=== PATIENT | female | born 1995 | race American Indian/Alaskan Native ===

== ENCOUNTER 2016-10-19 23:34 | Emergency (ER) | payer OTHER ==
[2016-10-19 23:34] VITALS: BMI 28.5
== END 2016-10-20 02:05 | disposition left against medical advice (07) ==
LOC: ED 23:34
DX: Z02.89 Encounter for other administrative examinations (principal); R52 Pain, unspecified

== ENCOUNTER 2017-02-17 10:19 | Emergency (ER) | payer MEDICAID, OTHER ==
[2017-02-17 10:19] VITALS: BMI 28.5
[2017-02-17] MEDS ORDERED: Morphine 2 mg/ml ISec IVP STA (10:42)
--- NOTE | 2017-02-17 10:46 | ED PDOC ---
Arrival/HPI - General Chief Complaint: Dental Pain Time Seen by Provider: 02/17/17 10:42 Historian: Patient, EMS - History of Present Illness Narrative History of Present Illness (Text): 02/17/17 10:43 22 y/o female, nkda, c/o rt. lower molar pain with the swelling x 2 days with no fall or trauma. Pt. stated that she has the rt. lower molar pain x 2 days, aching pain, associated with the right facial swelling, no night sweat, no dizziness, no rash, no chest pain or shortness of breath, no difficulty turning the neck, no night sweat, no difficulty swallowing, no other medical or psychological complaints. Past Medical History - Provider Review Nursing Documentation Reviewed: Yes - Past History Past History: Non-Contributing - Infectious Disease Hx of Infectious Diseases: None - Tetanus Immunization Tetanus Immunization: Unknown - Reproductive Menopause: No - Past Medical History Past Medical History: No Previous - Cardiac Hx Cardiac Disorders: No Hx Hypertension: No - Pulmonary Hx Respiratory Disorders: No Hx Asthma: No Hx Tuberculosis: No - Neurological HX Cerebrovascular Accident: No Hx Seizures: No - Hematological/Oncological Hx Cancer: No - Musculoskeletal/Rheumatological Hx Falls: No - Gastrointestinal Hx Gastrointestinal Disorders: No - Genitourinary/Gynecological Hx Genitourinary Disorders: No Hx Reproductive Disorders: No - Psychiatric Hx Psychophysiologic Disorder: No Hx Emotional Abuse: No Hx Physical Abuse: No Hx Substance Use: Yes - Past Surgical History Past Surgical History: No Previous - Anesthesia Hx Anesthesia: No Hx Anesthesia Reactions: No Hx Malignant Hyperthermia: No - Suicidal Assessment Feels Threatened In Home Enviroment: No Family/Social History - Physician Review Nursing Documentation Reviewed: Yes Family/Social History: Unknown Family HX Smoking Status: Never Smoked Hx Alcohol Use: No Hx Substance Use: Yes Hx Substance Use Treatment: No Allergies/Home Meds Allergies/Adverse Reactions: Allergies No Known Allergies Allergy (Verified 02/17/17 10:32) Review of Systems - Review of Systems Constitutional: absent: Fatigue, Fevers Eyes: absent: Vision Changes ENT: Other (dental pain). absent: Hearing Changes Respiratory: absent: SOB, Cough Cardiovascular: absent: Chest Pain, Palpitations, Calf Pain Gastrointestinal: absent: Abdominal Pain, Nausea, Vomiting Skin: absent: Rash, Pruritis Neurological: absent: Headache, Dizziness, Focal Weakness Psychiatric: absent: Anxiety, Depression Physical Exam Vital Signs Reviewed: Yes Vital Signs Temp Pulse Resp BP Pulse Ox 02/17/17 11:08 71 18 141/83 97 02/17/17 10:29 98.9 F 74 19 141/83 98 Temperature: Afebrile Blood Pressure: Normal Pulse: Regular Respiratory Rate: Normal Appearance: Positive for: Well-Appearing, Non-Toxic Pain Distress: Severe Mental Status: Positive for: Alert and Oriented X 3 - Systems Exam Head: Present: Atraumatic, Normocephalic Pupils: Present: PERRL Extroacular Muscles: Present: EOMI Conjunctiva: Present: Normal Mouth: Present: Moist Mucous Membranes, Normal Lips, Normal Tounge. No: Drooling, Trismus, Normal Teeth (Rt. lower gum line and molar region swelling noted with mild gingivitis, there are multiple dental caries with the brokened teeth noted especially on the bilateral lower molars. ) Pharnyx: No: ERYTHEMA, EXUDATE, TONSILS ENLARGED, Uvular Deviation, Muffled/ Hoarse Voice, Strider Neck: Present: Normal Range of Motion Respiratory/Chest: Present: Clear to Auscultation, Good Air Exchange. No: Respiratory Distress, Accessory Muscle Use Cardiovascular: Present: Regular Rate and Rhythm, Normal S1, S2. No: Murmurs Abdomen: Present: Normal Bowel Sounds. No: Tenderness, Distention, Peritoneal Signs Back: Present: Normal Inspection Upper Extremity: Present: Normal Inspection. No: Cyanosis, Edema Lower Extremity: Present: Normal Inspection. No: Edema Neurological: Present: GCS=15, CN II-XII Intact, Speech Normal Skin: Present: Warm, Dry, Normal Color. No: Rashes Psychiatric: Present: Alert, Oriented x 3, Normal Insight, Normal Concentration Medical Decision Making ED Course and Treatment: 02/17/17 10:47 -clindamycin/toradol/morphine 2mg -there is no palpable fluctuant abscess and confirmed with the sonogram on the bed side. 02/17/17 11:54 -Pain decreased, patient feels better. -Discharge home with clindamycin, motrin, chlorhexidine oral rinse, viscous lidocaine, soft food diet, stay hydrated, follow up with your own pmd and dentist within 2 days, return to the ER for any new or worsening signs or symptoms. - Medication Orders Current Medication Orders: Discontinued Medications Clindamycin Phosphate (Cleocin) Confirm Administered Dose 600 mg .ROUTE .STK- MED ONE Stop: 02/17/17 10:50 Clindamycin Phosphate 900 mg/ (Sodium Chloride) 106 mls @ 106 mls/hr IVPB STAT STA PRN Reason: Protocol Stop: 02/17/17 11:41 Last Admin: 02/17/17 11:16 Dose: 106 mls/hr Ketorolac Tromethamine (Toradol) 30 mg IVP STAT STA Stop: 02/17/17 10:43 Last Admin: 02/17/17 11:18 Dose: 30 mg Lidocaine HCl (Lidocaine 2% Viscous) 15 ml MM STAT STA Stop: 02/17/17 10:49 Last Admin: 02/17/17 11:20 Dose: 15 ml Morphine Sulfate (Morphine) 2 mg IVP STAT STA Stop: 02/17/17 10:43 Last Admin: 02/17/17 11:17 Dose: 2 mg - PA / RESIDENTIAL SERVICE TECHNICIAN / Resident Statement / has reviewed & agrees with the documentation as recorded. Disposition/Present on Arrival - Present on Arrival Any Indicators Present on Arrival: No History of DVT/PE: No History of Uncontrolled Diabetes: No Urinary Catheter: No History of Decub. Ulcer: No History Surgical Site Infection Following: None - Disposition Have Diagnosis and Disposition been Completed?: Yes Diagnosis: Dental caries, Pain, dental, Gingivitis Disposition: HOME/ ROUTINE Disposition Time: 11:56 Patient Plan: Discharge Condition: IMPROVED Prescriptions: Chlorhexidine 0.12% [Peridex] 15 ml PO BID #1 bottle Clindamycin [Cleocin] 300 mg PO TID #30 cap Ibuprofen [Motrin Tab] 800 mg PO TID PRN #21 tab PRN Reason: Other Lidocaine 2% Viscous 15 ml MM TID PRN #1 bottle PRN Reason: Other Referrals: PCP,NO [Primary Care Provider] - Follow up with primary Saul Scott DMD [Non-Staff] - Follow up with primary [facility] [place]] - Follow up with primary Forms: [facility] (Green[place]ic), WORK NOTE
[2017-02-17] MEDS ORDERED: Clindamycin 150 mg/mL Inj ONE (10:49)
[2017-02-17 11:09] VITALS: RESP 18; O2SAT 97
[2017-02-17 12:25] VITALS: BP 138/74; PULSE 75
[2017-02-17 13:15] VITALS: TEMP 97.6
== END 2017-02-17 13:16 | disposition home or self-care (01) ==
LOC: ED 10:19
DX: K02.9 Dental caries, unspecified (principal); K08.89 Other specified disorders of teeth and supporting structures; K05.10 Chronic gingivitis, plaque induced
CPT/HCPCS: 96365; 96375; 99283; J1885; J2270

== ENCOUNTER 2017-05-02 22:49 | Emergency (ER) | payer MEDICAID ==
[2017-05-02 23:16] VITALS: BMI 33.7
[2017-05-02 23:20] VITALS: BP 117/82; PULSE 73; RESP 18; TEMP 98.4; O2SAT 97
[2017-05-03 00:27] LABS: PH,URINE 6.5 (4.7-8.0); URINE BILIRUBIN NEGATIVE (NEGATIVE); URINE BLOOD NEGATIVE (NEGATIVE); URINE GLUCOSE (UA) NEGATIVE (NEGATIVE); URINE KETONE NEGATIVE (NEGATIVE); URINE LEUKOCYTE ESTERASE TRACE Leu/uL (NEGATIVE); URINE PROTEIN NEGATIVE mg/dL (<30 mg/dL)
[2017-05-03 00:29] LABS: BASO # 0.02 K/mm3 (0.0-2.0); BASO % 0.3 % (0.0-3.0); EOS # 0.3 (0.0-0.7); EOS % 4.2 % (1.5-5.0); GRAN # 2.94 (1.4-6.5); GRAN % 49.2 % (50.0-68.0); HEMATOCRIT 34.5 % (36.0-48.0); LYMPH # 2.3 (1.2-3.4); LYMPH % 37.8 % (22.0-35.0); MEAN CELL VOLUME 78.1 fl (80.0-105.0); MEAN CORPUSCULAR HEMOGLOBIN 25.1 pg (25.0-35.0); MEAN CORPUSCULAR HGB CONC 32.2 g/dl (31.0-37.0); MEAN PLATELET VOLUME 11.3 fl (7.0-11.0); MONO # 0.5 (0.1-0.6); MONO % 8.5 % (1.0-6.0); RED CELL DISTRIBUTION WIDTH 14.6 % (11.5-14.5)
[2017-05-03 00:31] LABS: URINE APPEARANCE CLEAR (CLEAR); URINE COLOR YELLOW (YELLOW)
--- NOTE | 2017-05-03 00:36 | ED PDOC ---
Arrival/HPI <CooperTeodoro ponce - Last Filed: 05/03/17 01:42> - General Historian: Patient, Family - History of Present Illness Time/Duration: Other (One month) Symptom Onset: Gradual Symptom Course: Unchanged Quality: Aching Severity Level: 7 Activities at Onset: Rest, Light Context: Home <JesusGunnar - Last Filed: 05/03/17 06:18> - General Chief Complaint: Abdominal Pain Time Seen by Provider: 05/02/17 23:28 - History of Present Illness Narrative History of Present Illness (Text): 05/03/17 00:31 Ms. Terry is a 22 year old AAF with no significant past medical history who presents to the [facility] ED with a chief complaint of chest wall tenderness with deep breathing for one week and RLQ pain for "several months". Patient reports that her RLQ pain is intermittent in nature since its onset several months ago and endorses that she only experiences relief of this pain when she is in the ED. She also reports chest wall tenderness located anteriorly along the sternum for the past week. She states that the pain is also intermittent in nature but that it causes her to be SOB when it occurs. She denies SOB w/o the pain. Patient also denies fever, chills, headache, changes in vision, sore throat, neck pain/stiffness, palpitations, cough, N/V/D/C, food intolerance, anorexia, burning/pain with urination, hematuria, rashes or any numbness/tingling/ weakness of any extremity. (Gunnar Lee) Past Medical History - Provider Review Nursing Documentation Reviewed: Yes - Travel History Have you recently traveled outside [place] w/in the past 3 mons?: No - Past History Past History: Non-Contributing - Infectious Disease Hx of Infectious Diseases: None - Tetanus Immunization Tetanus Immunization: Unknown - Past Medical History Past Medical History: No Previous - Cardiac Hx Cardiac Disorders: No Hx Hypertension: No - Pulmonary Hx Respiratory Disorders: No Hx Asthma: Yes (as a child) Hx Tuberculosis: No - Neurological HX Cerebrovascular Accident: No Hx Seizures: No - Hematological/Oncological Hx Cancer: No - Musculoskeletal/Rheumatological Hx Falls: No - Gastrointestinal Hx Gastrointestinal Disorders: No - Genitourinary/Gynecological Hx Genitourinary Disorders: No Hx Reproductive Disorders: No - Psychiatric Hx Psychophysiologic Disorder: No Hx Emotional Abuse: No Hx Physical Abuse: No Hx Substance Use: Yes - Past Surgical History Past Surgical History: No Previous - Anesthesia Hx Anesthesia: No Hx Anesthesia Reactions: No Hx Malignant Hyperthermia: No - Suicidal Assessment Feels Threatened In Home Enviroment: No <Gunnar Lee - Last Filed: 05/03/17 06:18> Family/Social History - Physician Review Nursing Documentation Reviewed: Yes Family/Social History: Unknown Family HX Smoking Status: Never Smoked Hx Alcohol Use: No Hx Substance Use: Yes Hx Substance Use Treatment: No <JesusGunnar - Last Filed: 05/03/17 06:18> Allergies/Home Meds <Teodoro Gamboa - Last Filed: 05/03/17 01:42> <JesusGunnar - Last Filed: 05/03/17 06:18> Allergies/Adverse Reactions: Allergies No Known Allergies Allergy (Verified 05/02/17 23:15) Review of Systems - Physician Review All systems were reviewed & negative as marked: Yes - Review of Systems Constitutional: Normal. absent: Fevers, Night Sweats Eyes: Normal. absent: Vision Changes ENT: Normal Respiratory: SOB (a/w chest pain). absent: Normal, Cough, Wheezing Cardiovascular: Chest Pain (Chest wall tenderness along the sternum with deep breathing). absent: Normal, Palpitations, Syncope Gastrointestinal: Abdominal Pain (RLQ pain). absent: Normal, Stool Changes, Constipation, Diarrhea, Nausea, Vomiting, Appetite Changes, Hematochezia, Hematemesis, Anorexia, Food Intolerance Genitourinary Female: Normal. absent: Dysuria, Frequency, Hematuria, Vaginal Bleeding, Vaginal Discharge Musculoskeletal: Normal. absent: Arthralgias, Back Pain, Neck Pain, Joint Swelling, Myalgias Skin: Normal. absent: Rash, Skin Lesions Neurological: Normal. absent: Headache, Dizziness Endocrine: Normal Hemo/Lymphatic: Normal Psychiatric: Normal <Gunnar Lee - Last Filed: 05/03/17 06:18> Physical Exam Vital Signs Reviewed: Yes Temperature: Afebrile Blood Pressure: Normal Pulse: Regular Respiratory Rate: Normal Appearance: Positive for: Well-Appearing, Non-Toxic, Comfortable Pain Distress: None Mental Status: Positive for: Alert and Oriented X 3 - Systems Exam Head: Present: Atraumatic, Normocephalic Pupils: Present: PERRL Extroacular Muscles: Present: EOMI Conjunctiva: Present: Normal Mouth: Present: Moist Mucous Membranes Neck: Present: Normal Range of Motion, Trachea Midline. No: Meningeal Signs, MIDLINE TENDERNESS, Paraspinal Tenderness, JVD, Lymphadenopathy Respiratory/Chest: Present: Clear to Auscultation, Good Air Exchange, Tender to Palpation (TTP over sternum and surrounding costochondral joints). No: Respiratory Distress, Accessory Muscle Use, Wheezes, Decreased Breath Sounds, Rales, Retracting, Rhonchi, Tachypneic Cardiovascular: Present: Regular Rate and Rhythm, Normal S1, S2, Peripheal Pulses Present. No: Murmurs, Irregular Rhythm, Tachycardic, Bradycardic Abdomen: Present: Tenderness (RLQ TTP), Normal Bowel Sounds. No: Distention, Peritoneal Signs, Rebound, Guarding, McBurney's Point Tender, Mass/Organomegaly Back: Present: Normal Inspection. No: CVA Tenderness, Midline Tenderness, Paraspinal Tenderness Upper Extremity: Present: Normal Inspection. No: Cyanosis, Edema Lower Extremity: Present: Normal Inspection. No: Edema Neurological: Present: GCS=15, CN II-XII Intact, Speech Normal Skin: Present: Warm, Dry, Normal Color. No: Rashes Lymphatic: No: Cervical Adenopathy Psychiatric: Present: Alert, Oriented x 3, Normal Insight, Normal Concentration <Gunnar Lee - Last Filed: 05/03/17 06:18> Vital Signs Temp Pulse Resp BP Pulse Ox 05/02/17 23:16 98.4 F 73 18 117/82 97 05/02/17 23:13 98.4 F 73 18 117/82 97 Medical Decision Making - Lab Interpretations I have reviewed the lab results: Yes - RAD Interpretation Core Dropper: ED Physician, Radiologist - EKG Interpretation Interpreted by ED Physician: Yes Type: 12 lead EKG <Teodoro Gamboa - Last Filed: 05/03/17 01:42> - Lab Interpretations I have reviewed the lab results: Yes - RAD Interpretation Core Dropper: ED Physician, Radiologist - EKG Interpretation Interpreted by ED Physician: Yes Type: 12 lead EKG <Gunnar Lee - Last Filed: 05/03/17 06:18> ED Course and Treatment: Impression: Pt seen and evaluated with medical practice manager. Pt, with no significant past medical history, who presents to the Emergency department complaining of chest wall discomfort with deep inspiration and RLQ pain for a few months. Aware and agree with HPI, clinical findings, plan, and management. Plan: -- CT Abdomen and Pelvis -- EKG -- Chest X-ray -- Labs, cardiac enzymes, lipase -- Urinalysis, urine cultures -- Motrin -- Flexeril -- Tylenol -- Reassess and disposition (Teodoro Gamboa) 05/03/17 00:38 Impression: 22 year old AAF with no significant past medical history who presents to the [facility] ED with a chief complaint of chest wall tenderness with deep breathing for one week and RLQ pain for "several months" Plan: -CBC, CMP, Cardiac Iso's, Lipase, UA -Chest X-Ray -EKG -Abdomen/Pelvis CT w/o contrast -Reassess and disposition Prior Visits: Patient has been seen on multiple occasions for evaluation of RLQ pain (Gunnar Lee) - Lab Interpretations Lab Results: 05/02/17 23:10 05/02/17 23:10 Lab Results 05/03/17 00:13: Urine Color Yellow, Urine Appearance Clear, Urine pH 6.5, Ur Specific [place] 1.015, Urine Protein Negative, Urine Glucose (UA) Negative, Urine Ketones Negative, Urine Blood Negative, Urine Nitrate Negative, Urine Bilirubin Negative, Urine Urobilinogen 1.0 H, Ur Leukocyte Esterase Trace H, Urine RBC 0 - 2, Urine WBC 2 - 5, Ur Epithelial Cells Many, Urine Bacteria Small , Urine Other Trichomonas 05/02/17 23:10: Sodium 139, Potassium 3.9, Chloride 104, Carbon Dioxide 25, Anion Gap 14, BUN 13, Creatinine 0.9, Est GFR ( Amer) > 60, Est GFR (Non- Af Amer) > 60, Random Glucose 99, Calcium 9.2, Total Bilirubin 0.5, AST 33, ALT 48, Alkaline Phosphatase 66, Lactate Dehydrogenase 526, Total Creatine Kinase 228, Troponin I < 0.01, Total Protein 8.2, Albumin 4.4, Globulin 3.9, Albumin/ Globulin Ratio 1.1, Lipase 80 05/02/17 23:10: WBC 6.0 D, RBC 4.42, Hgb 11.1 L, Hct 34.5 L, MCV 78.1 L, MCH 25.1, MCHC 32.2, RDW 14.6 H, Plt Count 291, MPV 11.3 H, Gran % 49.2 L, Lymph % ( Auto) 37.8 H, [place] % (Auto) 8.5 H, Eos % (Auto) 4.2, Baso % (Auto) 0.3, Gran # 2.94, Lymph # 2.3, [place] # 0.5, Eos # 0.3, Baso # 0.02 - RAD Interpretation Radiology Orders: 05/03/17 00:09 CHEST PORTABLE [RAD] Stat 05/03/17 00:14 ABDOMEN & PELVIS [ABD & PELVIS W/O PO OR IV CONT] [CT] Stat - Medication Orders Current Medication Orders: Discontinued Medications Acetaminophen (Tylenol 325mg Tab) 975 mg PO STAT STA Stop: 05/03/17 00:11 Last Admin: 05/03/17 00:26 Dose: 975 mg Cyclobenzaprine HCl (Flexeril) 10 mg PO STAT STA Stop: 05/03/17 00:11 Last Admin: 05/03/17 00:25 Dose: 10 mg Ibuprofen (Motrin Tab) 600 mg PO STAT STA Stop: 05/03/17 00:11 Last Admin: 05/03/17 00:25 Dose: 600 mg Metronidazole (Flagyl) 2,000 mg PO STAT STA PRN Reason: Protocol Stop: 05/03/17 00:46 Last Admin: 05/03/17 00:58 Dose: 2,000 mg - PA / HOT BRAIDER / Resident Statement OZ has reviewed & agrees with the documentation as recorded. / has examined the patient and agrees with the treatment plan. <Teodoro Gamboa - Last Filed: 05/03/17 01:42> Disposition/Present on Arrival <Teodoro Gamboa - Last Filed: 05/03/17 01:42> - Present on Arrival Any Indicators Present on Arrival: No History of DVT/PE: No History of Uncontrolled Diabetes: No Urinary Catheter: No History of Decub. Ulcer: No History Surgical Site Infection Following: None - Disposition Have Diagnosis and Disposition been Completed?: Yes Disposition Time: 03:34 Patient Plan: Discharge <Gunnar Lee - Last Filed: 05/03/17 06:18> - Disposition Diagnosis: Ovarian cyst Disposition: HOME/ ROUTINE Condition: STABLE Discharge Instructions (ExitCare): Ovarian Cyst (ED) Additional Instructions: Ms. Terry, thank you for letting us take care of you today. Your provider was Dr. Gamboa. You were treated for abdominal pain and chest pain. The emergency medical care you received today was directed at your acute symptoms. If you were prescribed any medication, please fill it and take as directed. It may take several days for your symptoms to resolve. Return to the Emergency Department if your symptoms worsen, do not improve, or if you have any other problems. Please contact your doctor or call one of the physicians/clinics you have been referred to that are listed on the Patient Visit Information form that is included in your discharge packet. Bring any paperwork you were given at discharge with you along with any medications you are taking to your follow up visit. Our treatment cannot replace ongoing medical care by a primary care provider (PCP) outside of the emergency department. Thank you for allowing the [facility] team to be part of your care today. PLEASE FOLLOW UP WITH YOUR PRIMARY CARE DOCTOR WITHIN ONE WEEK If you had an X-Ray or CT scan: A Radiologist will review the ED reading if any change in treatment is needed we will contact you. Prescriptions: Naproxen 500 mg PO BID PRN #20 tab PRN Reason: Pain, Moderate (4-7) Referrals: [place] Adelso Plasencia, [Primary Care Provider] - Follow up with primary Israel Sidhu MD [Staff Provider] - Follow up with primary Forms: [facility] (Malaysian), WORK NOTE
[2017-05-03 00:37] LABS: URINE RBC 0 - 2 /hpf (0-2)
[2017-05-03 00:38] LABS: ALB/GLOB RATIO 1.1 (1.1-1.8); ALKALINE PHOSPHATASE 66 U/L (38-126); ALT/SGPT 48 U/L (7-56); AST/SGOT 33 U/L (14-36); BILIRUBIN,TOTAL 0.5 mg/dL (0.2-1.3); BLOOD UREA NITROGEN 13 mg/dL (7-21); CALCIUM 9.2 mg/dL (8.4-10.5); CARBON DIOXIDE 25 mmol/L (21-33); CHLORIDE 104 mmol/L (98-107); GFR AFRICAN-AMERICAN > 60; GLUCOSE,RANDOM 99 mg/dL (70-110); LIPASE 80 U/L (23-300); POTASSIUM 3.9 mmol/L (3.6-5.0); SODIUM 139 mmol/L (132-148); TOTAL PROTEIN 8.2 g/dL (5.8-8.3)
[2017-05-03 00:38] LABS: URINE BACTERIA SMALL (NEG); URINE EPITHELIAL CELLS MANY /hpf (0-5)
[2017-05-03 00:47] LABS: TROPONIN I < 0.01 ng/mL
--- NOTE | 2017-05-03 02:57 | CT ---
EXAM: CT Abdomen and Pelvis Without Intravenous Contrast CLINICAL HISTORY: 22 years old, female; Pain; Abdominal pain; Flank; Left; Additional info: Left flank pain TECHNIQUE: Axial computed tomography images of the abdomen and pelvis without intravenous contrast. All CT scans at this facility use one or more dose reduction techniques, viz.: automated exposure control; ma/kV adjustment per patient size (including targeted exams where dose is matched to indication; i.e. head); or iterative reconstruction technique. Coronal and sagittal reformatted images were created and reviewed. COMPARISON: CT - ABD PELVIS W/O PO OR IV CONT 2016-03-06 18:34 FINDINGS: Lower thorax: The bilateral lung bases are clear. ABDOMEN: Liver: The liver is enlarged and demonstrates diffuse fatty infiltration. Gallbladder and bile ducts: No acute finding. No calcified stones. No intra-extrahepatic biliary ductal dilation. Pancreas: Limited evaluation secondary to the lack of intravenous contrast. Spleen: No acute findings. Adrenals: No acute findings. Kidneys and ureters: No obstructing stones. No hydronephrosis. PELVIS: Bladder: No acute findings. Reproductive: Within the right hemipelvis is a rounded focus of fluid attenuation measuring 5.0 x 4.2 x 5.5 cm (anterior to posterior x medial to lateral x cranial to caudal dimension), statistically a cyst. The uterus is retroverted and retroflexed. Appendix: The air filled appendix is of normal caliber (series 601, image 53). ABDOMEN and PELVIS: Stomach and bowel: No acute findings. Peritoneum: No acute findings. Lymph nodes: Limited evaluation without intravenous contrast. Vasculature: No aortic aneurysm. Bones: No acute fracture. IMPRESSION: No obstructive uropathy. Normal appendix. Findings within the right hemipelvis, statistically representing a cyst measuring 5.5 cm in greatest dimension. Pelvic ultrasound may be performed for confirmation.
--- NOTE | 2017-05-03 08:22 | RAD ---
HISTORY: Pain with breathing COMPARISON: No prior. FINDINGS: LUNGS: No active pulmonary disease. PLEURA: No significant pleural effusion identified, no pneumothorax apparent. CARDIOVASCULAR: Normal. OSSEOUS STRUCTURES: No significant abnormalities. VISUALIZED UPPER ABDOMEN: Normal. OTHER FINDINGS: None. IMPRESSION: No active disease.
--- NOTE | 2017-05-03 10:50 | CARD ---
APPROVED REPORT EKG Measurement Heart [id number] <Conclusion> Normal sinus rhythm Normal ECG
== END 2017-05-03 04:15 | disposition home or self-care (01) ==
LOC: ED 22:49
DX: N83.201 Unspecified ovarian cyst, right side (principal)

== ENCOUNTER 2017-08-19 20:51 | Emergency (ER) | payer MEDICAID ==
[2017-08-19 21:25] VITALS: TEMP 98.6
[2017-08-19 21:28] VITALS: BMI 36.1
[2017-08-19] MEDS ORDERED: Sodium Chloride 0.9% 1,000 ML IV STA (21:54)
[2017-08-19 22:31] LABS: BASO # 0.02 K/mm3 (0.0-2.0); BASO % 0.3 % (0.0-3.0); EOS # 0.2 (0.0-0.7); EOS % 3.4 % (1.5-5.0); GRAN # 2.48 (1.4-6.5); GRAN % 41.9 % (50.0-68.0); HEMOGLOBIN 11.1 g/dL (12.0-16.0); LYMPH # 2.8 (1.2-3.4); LYMPH % 47.3 % (22.0-35.0); MEAN CORPUSCULAR HEMOGLOBIN 24.7 pg (25.0-35.0); MEAN CORPUSCULAR HGB CONC 32.5 g/dl (31.0-37.0); MEAN PLATELET VOLUME 10.3 fl (7.0-11.0); MONO # 0.4 (0.1-0.6); MONO % 7.1 % (1.0-6.0); RBC 4.5 10^6/uL (3.5-6.1); RED CELL DISTRIBUTION WIDTH 14.3 % (11.5-14.5); WHITE BLOOD COUNT 5.9 10^3/ul (4.5-11.0)
[2017-08-19 22:36] LABS: ALBUMIN 4.3 g/dL (3.0-4.8); ALT/SGPT 44 U/L (7-56); AST/SGOT 37 U/L (14-36); BLOOD UREA NITROGEN 15 mg/dL (7-21); CALCIUM 10.2 mg/dL (8.4-10.5); GFR AFRICAN-AMERICAN > 60; GFR NON-AFRICAN AMERICAN 55; LIPASE 100 U/L (23-300)
[2017-08-19 22:43] LABS: URINE BILIRUBIN NEGATIVE (NEGATIVE); URINE BLOOD SMALL (NEGATIVE); URINE GLUCOSE (UA) NEGATIVE (NEGATIVE); URINE LEUKOCYTE ESTERASE NEGATIVE Leu/uL (NEGATIVE); URINE PROTEIN 30 mg/dL (<30 mg/dL)
[2017-08-19 22:45] LABS: URINE APPEARANCE CLEAR (CLEAR); URINE COLOR YELLOW (YELLOW)
--- NOTE | 2017-08-19 22:48 | ED PDOC ---
Arrival/HPI - General Chief Complaint: Back Pain Time Seen by Provider: 08/19/17 21:20 Historian: Patient - History of Present Illness Narrative History of Present Illness (Text): 08/19/17 22:44 22yr old female presents today with 1 week hx of right sided abdominal pain, nausea and vomiting. pt denies cp or sob. no vomiting/diarrhea. no cp or sob. no dizziness or weakness. pt denies URI symptoms. pt denies urinary symptoms. pt unsure of . pt states she has noticed a slight pink discharge. denies fever/chills. no other complaints. Time/Duration: 1 week Symptom Onset: Gradual Symptom Course: Worsening Quality: Aching Past Medical History - Provider Review Nursing Documentation Reviewed: Yes - Travel History Have you recently traveled outside [place] w/in the past 3 mons?: No - Past History Past History: Non-Contributing - Infectious Disease Hx of Infectious Diseases: None - Tetanus Immunization Tetanus Immunization: Unknown - Past Medical History Past Medical History: No Previous - Cardiac Hx Cardiac Disorders: No Hx Hypertension: No - Pulmonary Hx Respiratory Disorders: No Hx Asthma: Yes (as a child) Hx Tuberculosis: No - Neurological HX Cerebrovascular Accident: No Hx Seizures: No - Hematological/Oncological Hx Cancer: No - Musculoskeletal/Rheumatological Hx Falls: No - Gastrointestinal Hx Gastrointestinal Disorders: No - Genitourinary/Gynecological Hx Genitourinary Disorders: No Hx Reproductive Disorders: No - Psychiatric Hx Psychophysiologic Disorder: No Hx Emotional Abuse: No Hx Physical Abuse: No Hx Substance Use: No - Past Surgical History Past Surgical History: No Previous - Anesthesia Hx Anesthesia: No Hx Anesthesia Reactions: No Hx Malignant Hyperthermia: No - Suicidal Assessment Feels Threatened In Home Enviroment: No Family/Social History - Physician Review Nursing Documentation Reviewed: Yes Family/Social History: Unknown Family HX Smoking Status: Never Smoked Hx Alcohol Use: No Hx Substance Use: No Hx Substance Use Treatment: No Allergies/Home Meds Allergies/Adverse Reactions: Allergies No Known Allergies Allergy (Verified 05/02/17 23:15) Home Medications: Home Meds Medication Instructions Recorded Confirmed Ergocalciferol [Drisdol 50,000 1 cap PO Q7D 08/19/17 08/19/17 Intl Units Cap] Review of Systems - Review of Systems Constitutional: absent: Fatigue, Fevers Respiratory: absent: SOB, Cough Cardiovascular: absent: Chest Pain, Palpitations Gastrointestinal: Abdominal Pain, Nausea, Vomiting. absent: Constipation, Diarrhea Genitourinary Female: Vaginal Bleeding. absent: Dysuria, Frequency, Hematuria, Vaginal Discharge Musculoskeletal: absent: Arthralgias, Back Pain, Neck Pain Skin: absent: Rash, Pruritis Neurological: absent: Headache, Dizziness Psychiatric: absent: Anxiety, Depression Physical Exam Vital Signs Reviewed: Yes Vital Signs Temp Pulse Resp BP Pulse Ox 08/20/17 00:19 76 17 115/80 99 08/19/17 21:24 98.6 F 82 18 117/65 98 Temperature: Afebrile Blood Pressure: Normal Pulse: Regular Respiratory Rate: Normal Appearance: Positive for: Well-Appearing, Non-Toxic, Comfortable Pain Distress: None Mental Status: Positive for: Alert and Oriented X 3 - Systems Exam Head: Present: Atraumatic Mouth: Present: Moist Mucous Membranes Neck: Present: Normal Range of Motion Respiratory/Chest: Present: Clear to Auscultation, Good Air Exchange. No: Respiratory Distress, Accessory Muscle Use Cardiovascular: Present: Regular Rate and Rhythm, Normal S1, S2. No: Murmurs Abdomen: Present: Tenderness (+ minimal ruq and rlq tenderness. ), Normal Bowel Sounds. No: Distention, Peritoneal Signs, Rebound, Guarding Genitourinary/Pelvic Exam: Present: Other (pt refused) Back: Present: Normal Inspection. No: CVA Tenderness, Midline Tenderness, Paraspinal Tenderness Upper Extremity: Present: Normal ROM Lower Extremity: Present: Normal ROM Neurological: Present: GCS=15, Speech Normal Skin: Present: Warm, Dry, Normal Color. No: Rashes Psychiatric: Present: Alert, Oriented x 3 Medical Decision Making ED Course and Treatment: 08/19/17 22:51 Patient is nontoxic well appearing with stable vital signs presenting with right sided abdominal pain x 1week. pt states pain has improved over the past week. hcg negative CBC wnl CMP wnl Lipase wnl Urinalysis + blood Ultrasound: FINDINGS: Uterus/cervix: Retroverted uterus. Uterus measures 7.6 x 5.2 x 5.9 cm in size. No myometrial mass. Endometrium: 1.2 cm in thickness. Right ovary: 3.6 x 2.2 x 4.0 cm in size. No mass. Small follicles. Normal flow. Left ovary: 2.8 x 4.1 by 2.5 cm in size. No mass. Small follicles. Normal flow. Free fluid: Trace free fluid within pelvis. Bladder: Empty bladder which cannot be evaluated with this probe. IMPRESSION: 1. No acute findings. 2. Non-acute findings are described above. CAT scan: FINDINGS: Limitations: Motion artifact - moderate. Lower thorax: Hyperlucent right middle lobe, stable. ABDOMEN: Liver: Unremarkable. No mass. Gallbladder and bile ducts: No calcified stones. No ductal dilation. Pancreas: No ductal dilation. No mass. Spleen: No splenomegaly. Adrenals: No mass. Kidneys and ureters: No mass. No hydronephrosis. Stomach and bowel: No definite mural thickening. No obstruction. Appendix: Appendix not identified with certainty. No definite pericecal inflammation. PELVIS: Bladder: Unremarkable. Reproductive: Unremarkable as visualized. ABDOMEN and PELVIS: Intraperitoneal space: Trace free fluid within pelvis. No free air. Bones/joints: No acute fracture. Soft tissues: Unremarkable. Vasculature: Unremarkable. No aneurysm. Lymph nodes: No pathologically enlarged lymph nodes. IMPRESSION: 1. No definite acute intraabdominal abnormality within limitations of examination. 2. Incidental/non-acute findings are described above. Patient reassessment:pt feeling better. pt refused pelvic examination; Discussed all results with patient in depth pt reassessment; pt with slight rlq tenderness; ct does not visualized the appendix; pt refused admission to the hospital for further evaluation of her abdominal pain. Patient has been advised to not leave the emergency room but has decided to go AGAINST MEDICAL ADVICE. The patient possesses capacity to make decisions and has voiced understanding to all my warnings of potential worsening of the condition for which medical care was sought. I have discussed all known and potential risks and consequences to the patient leaving AGAINST MEDICAL ADVICE. Patient is leaving against medical advise. AMA form signed. witness by NIMISHA MCGRAW Impression: Abdominal pain pt has signed AMA return if wish to continue your care increase fluids follow up with the TEMPERING MACHINE OPERATOR within the next 2 days follow up with the PMD within the next 2 days follow up with the Gi doctor within the next 2 days return immediately if symptoms worsen,persist or if new symptoms develop. 08/20/17 01:45 - Lab Interpretations Lab Results: 08/19/17 22:20 08/19/17 22:20 Lab Results 08/19/17 22:25: Urine Color Yellow, Urine Appearance Clear, Urine pH 6.0, Ur Specific [place] 1.025, Urine Protein 30 H, Urine Glucose (UA) Negative, Urine Ketones 15 H, Urine Blood Small H, Urine Nitrate Negative, Urine Bilirubin Negative, Urine Urobilinogen 1.0 H, Ur Leukocyte Esterase Negative, Urine RBC 1 - 3, Urine WBC 2 - 5, Ur Epithelial Cells 6 - 8, Urine Bacteria Few 08/19/17 22:20: WBC 5.9, RBC 4.50, Hgb 11.1 L, Hct 34.2 L, MCV 76.0 L, MCH 24.7 L, MCHC 32.5, RDW 14.3, Plt Count 306, MPV 10.3, Gran % 41.9 L, Lymph % (Auto) 47.3 H, [place] % (Auto) 7.1 H, Eos % (Auto) 3.4, Baso % (Auto) 0.3, Gran # 2.48, Lymph # (Auto) 2.8, [place] # (Auto) 0.4, Eos # (Auto) 0.2, Baso # (Auto) 0.02 08/19/17 22:20: Beta HCG, Quant < 2.39 08/19/17 22:20: Sodium 143, Potassium 4.1, Chloride 103, Carbon Dioxide 30, Anion Gap 14, BUN 15, Creatinine 1.2, Est GFR ( Amer) > 60, Est GFR (Non- Af Amer) 55, Random Glucose 81, Calcium 10.2, Total Bilirubin 0.3, AST 37 H, ALT 44, Alkaline Phosphatase 74, Total Protein 8.4 H, Albumin 4.3, Globulin 4.1 , Albumin/Globulin Ratio 1.0 L, Lipase 100 - RAD Interpretation Radiology Orders: 08/19/17 21:56 TRANSVAGINAL [US] Stat 08/19/17 23:18 ABD & PELVIS IV CONTRAST ONLY [CT] Stat - Medication Orders Current Medication Orders: Discontinued Medications Diphenhydramine HCl (Benadryl) 25 mg IVP STAT STA Stop: 08/20/17 00:07 Last Admin: 08/20/17 00:08 Dose: 25 mg IVP Administration Document 08/20/17 00:08 AD (Rec: 08/20/17 00:14 AD [id number]) Charges for Administration # of IVP Administrations 1 Sodium Chloride (Sodium Chloride 0.9%) 1,000 mls @ 999 mls/hr IV .Q1H1M STA Stop: 08/19/17 22:54 Last Admin: 08/19/17 22:16 Dose: 999 mls/hr eMAR Start Stop Document 08/19/17 22:16 AD (Rec: 08/19/17 22:16 AD [id number]) Intravenous Solution Start Date 08/19/17 Start Time 22:16 Disposition/Present on Arrival - Present on Arrival Any Indicators Present on Arrival: No History of DVT/PE: No History of Uncontrolled Diabetes: No Urinary Catheter: No History of Decub. Ulcer: No History Surgical Site Infection Following: None - Disposition Have Diagnosis and Disposition been Completed?: Yes Diagnosis: Abdominal pain Disposition: AGAINST MEDICAL ADVICE Disposition Time: 01:15 Patient Plan: Other (AMA) Condition: UNKNOWN Discharge Instructions (ExitCare): Acute Abdomen (Belly Pain), Adult (DC), Nausea and Vomiting, Adult Additional Instructions: return if wish to continue your care increase fluids follow up with the TEMPERING MACHINE OPERATOR within the next 2 days follow up with the PMD within the next 2 days follow up with the Gi doctor within the next 2 days return immediately if symptoms worsen,persist or if new symptoms develop. Referrals: Jose Antonio Mclean MD [Primary Care Provider] - Follow up with primary Israel Sidhu MD [Staff Provider] - Follow up with primary Dom Lai MD [Staff Provider] - Follow up with primary [facility] [Outside] - Follow [facility] with [facility] [Outside] - Follow up with primary Forms: [employer] (Gu[place]ian), WORK NOTE
[2017-08-19 22:50] LABS: URINE BACTERIA FEW (NEG)
--- NOTE | 2017-08-19 23:17 | US ---
EXAM: US Pelvis, Transvaginal CLINICAL HISTORY: 22 years old, female; Pain; Pelvic pain TECHNIQUE: Real-time transvaginal pelvic ultrasound (complete) with image documentation. Transvaginal imaging was used for better evaluation of the endometrium and adnexa. COMPARISON: US - TRANSVAGINAL 2016-02-08 23:35 FINDINGS: Uterus/cervix: Retroverted uterus. Uterus measures 7.6 x 5.2 x 5.9 cm in size. No myometrial mass. Endometrium: 1.2 cm in thickness. Right ovary: 3.6 x 2.2 x 4.0 cm in size. No mass. Small follicles. Normal flow. Left ovary: 2.8 x 4.1 by 2.5 cm in size. No mass. Small follicles. Normal flow. Free fluid: Trace free fluid within pelvis. Bladder: Empty bladder which cannot be evaluated with this probe. IMPRESSION: 1.No acute findings. 2.Non-acute findings are described above.
[2017-08-19] MEDS ORDERED: Iohexol 350 MG/100 ML VIAL ONE (23:24)
[2017-08-20] MEDS ORDERED: DiphenhydrAMINE 50 mg/ml Inj IVP STA (00:06)
[2017-08-20] MEDS ORDERED: DiphenhydrAMINE 50 mg/ml Inj ONE (00:08)
--- NOTE | 2017-08-20 00:18 | CT ---
EXAM: CT Abdomen and Pelvis With Intravenous Contrast CLINICAL HISTORY: 22 years old, female; Pain; Abdominal pain; Flank; Right; Additional info: Ruq/rlq abd pain TECHNIQUE: Axial computed tomography images of the abdomen and pelvis with intravenous contrast. All CT scans at this facility use one or more dose reduction techniques, viz.: automated exposure control; ma/kV adjustment per patient size (including targeted exams where dose is matched to indication; i.e. head); or iterative reconstruction technique. Coronal and sagittal reformatted images were created and reviewed. CONTRAST: 96 mL of OMNI 350 administered intravenously. COMPARISON: CT - ABD PELVIS W/O PO OR IV CONT 2017-05-03 01:06 FINDINGS: Limitations: Motion artifact - moderate. Lower thorax: Hyperlucent right middle lobe, stable. ABDOMEN: Liver: Unremarkable. No mass. Gallbladder and bile ducts: No calcified stones. No ductal dilation. Pancreas: No ductal dilation. No mass. Spleen: No splenomegaly. Adrenals: No mass. Kidneys and ureters: No mass. No hydronephrosis. Stomach and bowel: No definite mural thickening. No obstruction. Appendix: Appendix not identified with certainty. No definite pericecal inflammation. PELVIS: Bladder: Unremarkable. Reproductive: Unremarkable as visualized. ABDOMEN and PELVIS: Intraperitoneal space: Trace free fluid within pelvis. No free air. Bones/joints: No acute fracture. Soft tissues: Unremarkable. Vasculature: Unremarkable. No aneurysm. Lymph nodes: No pathologically enlarged lymph nodes. IMPRESSION: 1. No definite acute intraabdominal abnormality within limitations of examination. 2. Incidental/non-acute findings are described above.
[2017-08-20 00:20] VITALS: RESP 17
[2017-08-20 03:57] VITALS: BP 118/74; PULSE 80; O2SAT 100
== END 2017-08-20 01:13 | disposition left against medical advice (07) ==
LOC: ED 20:51
DX: R10.9 Unspecified abdominal pain (principal)
CPT/HCPCS: 74177; 76830; 80053; 81001; 83690; 84702; 85025; 96374; 99283; J1200; J7040; Q9967

== ENCOUNTER 2018-06-13 00:35 | Emergency (ER) | payer SELFPAY ==
[2018-06-13 00:35] VITALS: BMI 36.1
[2018-06-13 00:48] VITALS: RESP 18
[2018-06-13] MEDS ORDERED: DiphenhydrAMINE 50 mg/ml Inj IVP ONE (00:56)
--- NOTE | 2018-06-13 00:58 | ED PDOC ---
Arrival/HPI - General Chief Complaint: Headache Time Seen by Provider: 06/13/18 00:40 Historian: Patient - History of Present Illness Narrative History of Present Illness (Text): 06/13/18 00:55 Alissa Terry is a 23 year old female who presents to the Emergency department complaining of a frontal headache tonight. Patient states she has a history of similar headaches in the past. Patient also reports some nausea. Patient denies any fever, chills, chest pain, shortness of breath, vomiting, diarrhea, urinary symptoms, back pain, neck pain, dizziness, or any other complaints. Symptom Onset: Gradual Symptom Course: Unchanged Activities at Onset: Light Context: Home Past Medical History - Provider Review Nursing Documentation Reviewed: Yes - Past History Past History: Non-Contributing - Infectious Disease Hx of Infectious Diseases: None - Tetanus Immunization Tetanus Immunization: Unknown - Past Medical History Past Medical History: No Previous - Cardiac Hx Cardiac Disorders: No Hx Hypertension: No - Pulmonary Hx Respiratory Disorders: No Hx Asthma: Yes (as a child) Hx Tuberculosis: No - Neurological HX Cerebrovascular Accident: No Hx Seizures: No - Hematological/Oncological Hx Cancer: No - Musculoskeletal/Rheumatological Hx Falls: No - Gastrointestinal Hx Gastrointestinal Disorders: No - Genitourinary/Gynecological Hx Genitourinary Disorders: No Hx Reproductive Disorders: No - Psychiatric Hx Psychophysiologic Disorder: No Hx Emotional Abuse: No Hx Physical Abuse: No Hx Substance Use: No - Past Surgical History Past Surgical History: No Previous - Anesthesia Hx Anesthesia: No Hx Anesthesia Reactions: No Hx Malignant Hyperthermia: No - Suicidal Assessment Feels Threatened In Home Enviroment: No Family/Social History - Physician Review Nursing Documentation Reviewed: Yes Family/Social History: Unknown Family HX Smoking Status: Never Smoked Hx Alcohol Use: No Hx Substance Use: No Hx Substance Use Treatment: No Allergies/Home Meds Allergies/Adverse Reactions: Allergies No Known Allergies Allergy (Verified 06/13/18 00:45) Home Medications: Home Meds Medication Instructions Recorded Confirmed Ergocalciferol [Drisdol 50,000 1 cap PO Q7D 08/19/17 08/19/17 Intl Units Cap] Review of Systems - Physician Review All systems were reviewed & negative as marked: Yes - Review of Systems Constitutional: Normal. absent: Fevers Eyes: Normal ENT: Normal Respiratory: Normal. absent: SOB, Cough Cardiovascular: Normal. absent: Chest Pain Gastrointestinal: absent: Abdominal Pain, Vomiting Genitourinary Female: Normal. absent: Dysuria, Frequency, Hematuria, Urine Output Changes Musculoskeletal: Normal. absent: Back Pain, Neck Pain Skin: Normal. absent: Rash Neurological: Headache. absent: Dizziness Endocrine: Normal Hemo/Lymphatic: Normal Psychiatric: Normal Physical Exam Vital Signs Reviewed: Yes Vital Signs Temp Pulse Resp BP Pulse Ox 06/13/18 00:48 98.4 F 70 18 120/89 98 Temperature: Afebrile Blood Pressure: Normal Pulse: Regular Respiratory Rate: Normal Appearance: Positive for: Well-Appearing, Non-Toxic, Comfortable Pain Distress: None Mental Status: Positive for: Alert and Oriented X 3 - Systems Exam Head: Present: Atraumatic, Normocephalic Pupils: Present: PERRL Extroacular Muscles: Present: EOMI Conjunctiva: Present: Normal Ears: Present: Normal, NORMAL TM, Normal Canal. No: Erythema, TM Bulging, Fluid , TM Perf Mouth: Present: Moist Mucous Membranes Pharnyx: Present: Normal. No: ERYTHEMA, EXUDATE, TONSILS ENLARGED, Peritonsilar Swelling, Uvular Deviation, Muffled/Hoarse Voice, Strider, Soft Palate/Uvular Edema Nose (External): Present: Atraumatic Nose (Internal): Present: Normal Inspection Neck: Present: Normal Range of Motion. No: Meningeal Signs, MIDLINE TENDERNESS, Paraspinal Tenderness Respiratory/Chest: Present: Clear to Auscultation, Good Air Exchange. No: Respiratory Distress, Accessory Muscle Use Cardiovascular: Present: Regular Rate and Rhythm, Normal S1, S2. No: Murmurs Abdomen: No: Tenderness, Distention, Peritoneal Signs Back: Present: Normal Inspection Upper Extremity: Present: Normal Inspection. No: Cyanosis, Edema Lower Extremity: Present: Normal Inspection. No: Edema Neurological: Present: GCS=15, CN II-XII Intact, Speech Normal, Motor Func Grossly Intact, Normal Sensory Function, Normal Cerebellar Funct, Gait Normal Skin: Present: Warm, Dry, Normal Color. No: Rashes Psychiatric: Present: Alert, Oriented x 3, Normal Insight, Normal Concentration Medical Decision Making ED Course and Treatment: 06/13/18 00:55 Impression: 23 year old female complaining of headache. Plan: -- Reglan -- Benadryl -- IV fluids -- Reassess and disposition Prior Visits: Notes and results from previous visits were reviewed. Progress Notes: - Lab Interpretations I have reviewed the lab results: Yes Interpretation: All labs normal - RAD Interpretation Machine Inker: ED Physician - Scribe Statement The provider has reviewed the documentation as recorded by the Yonis Severino Provider Scribe Attestation: All medical record entries made by the Scribe were at my direction and personally dictated by me. I have reviewed the chart and agree that the record accurately reflects my personal performance of the history, physical exam, medical decision making, and the department course for this patient. I have also personally directed, reviewed, and agree with the discharge instructions and disposition. Disposition/Present on Arrival - Present on Arrival Any Indicators Present on Arrival: No History of DVT/PE: No History of Uncontrolled Diabetes: No Urinary Catheter: No History of Decub. Ulcer: No History Surgical Site Infection Following: None - Disposition Have Diagnosis and Disposition been Completed?: Yes Diagnosis: Tension headache Disposition: HOME/ ROUTINE Disposition Time: 03:16 Patient Plan: Discharge Condition: STABLE Discharge Instructions (ExitCare): Tension Headache (DC) Additional Instructions: Take meds as prescribed/follow up with your doctor this week Prescriptions: Naproxen [Naprosyn] 500 mg PO BID PRN #10 tab PRN Reason: Headache Forms: [facility] (I[place]ic)
[2018-06-13] MEDS ORDERED: Sodium Chloride 0.9% 1,000 ML IV SCH (01:00)
[2018-06-13 03:29] VITALS: BP 126/70; PULSE 67; TEMP 98.6; O2SAT 99
--- NOTE | 2018-06-13 08:13 | CT ---
Date of service: 06/13/2018 PROCEDURE: CT HEAD WITHOUT CONTRAST. HISTORY: headache COMPARISON: None available. TECHNIQUE: Axial computed tomography images were obtained through the head/brain without intravenous contrast. Radiation dose: Total exam DLP = 867.6 mGy-cm. This CT exam was performed using one or more of the following dose reduction techniques: Automated exposure control, adjustment of the mA and/or kV according to patient size, and/or use of iterative reconstruction technique. FINDINGS: HEMORRHAGE: No intracranial hemorrhage. BRAIN: No mass effect or edema. No atrophy or chronic microvascular ischemic changes. VENTRICLES: Unremarkable. No hydrocephalus. CALVARIUM: Unremarkable. PARANASAL SINUSES: Unremarkable as visualized. No significant inflammatory changes. MASTOID AIR CELLS: Unremarkable as visualized. No inflammatory changes. OTHER FINDINGS: The report concurs with the preliminary [facility] report IMPRESSION: No acute findings
== END 2018-06-13 03:29 | disposition home or self-care (01) ==
LOC: ED 00:35
DX: G44.209 Tension-type headache, unspecified, not intractable (principal)
CPT/HCPCS: 70450; 81025; 96374; 96375; 99285; J1200; J2765; J7030

== ENCOUNTER 2018-08-06 19:01 | Emergency (ER) | payer SELFPAY ==
[2018-08-06 19:02] VITALS: BMI 36.1
--- NOTE | 2018-08-06 19:37 | ED PDOC ---
Arrival/HPI - General Historian: Patient - History of Present Illness Narrative History of Present Illness (Text): 08/06/18 19:32 Patient is a 23-year-old female with a past medical history of chronic headaches which she typically resolves using [id number] ibuprofen. Patient reported that over the past week or so shes not having worsening headaches with associated abdominal pain, nausea, vomiting, chills and fatigue. Patient reports she has not traveled anywhere recently, denies any sick contacts at home. Patient also reports she is having difficulty holding food down. No complaints of urinary symptoms, no complaints of cardiac chest pain; patient does complain of a cough as well as pleuritic chest pain. Time/Duration: < week Symptom Onset: Gradual Symptom Course: Worsening <Migel Mazariegos - Last Filed: 08/06/18 20:58> <Jorge Winchester - Last Filed: 08/06/18 21:24> - General Chief Complaint: Flu-like Symptoms Past Medical History - Past History Past History: Non-Contributing - Infectious Disease Hx of Infectious Diseases: None - Tetanus Immunization Tetanus Immunization: Unknown - Past Medical History Past Medical History: No Previous - Cardiac Hx Cardiac Disorders: No - Pulmonary Hx Respiratory Disorders: Yes Hx Asthma: Yes - Neurological Hx Neurological Disorder: No - HEENT Hx HEENT Disorder: No - Renal Hx Renal Disorder: No - Endocrine/Metabolic Hx Endocrine Disorders: No - Hematological/Oncological Hx Blood Disorders: No - Integumentary Hx Dermatological Disorder: No - Musculoskeletal/Rheumatological Hx Musculoskeletal Disorders: No - Gastrointestinal Hx Gastrointestinal Disorders: No - Genitourinary/Gynecological Hx Genitourinary Disorders: No - Psychiatric Hx Psychophysiologic Disorder: No Hx Physical Abuse: No Hx Substance Use: No - Past Surgical History Past Surgical History: No Previous - Anesthesia Hx Anesthesia: No Hx Anesthesia Reactions: No Hx Malignant Hyperthermia: No - Suicidal Assessment Feels Threatened In Home Enviroment: No <Migel Mazariegos - Last Filed: 08/06/18 20:58> Family/Social History Family/Social History: Unknown Family HX Smoking Status: Never Smoked Hx Alcohol Use: No Hx Substance Use: No Hx Substance Use Treatment: No <Migel Mazariegos - Last Filed: 08/06/18 20:58> Allergies/Home Meds <Migel Mazariegos - Last Filed: 08/06/18 20:58> <Jorge Winchester - Last Filed: 08/06/18 21:24> Allergies/Adverse Reactions: Allergies No Known Allergies Allergy (Verified 08/06/18 19:11) Home Medications: Home Meds Medication Instructions Recorded Confirmed No Known Home Med 08/06/18 08/06/18 Physical Exam - Systems Exam Head: Present: Atraumatic, Normocephalic Pupils: Present: PERRL Extroacular Muscles: Present: EOMI Conjunctiva: Present: Normal Mouth: Present: Moist Mucous Membranes Neck: Present: Normal Range of Motion Respiratory/Chest: Present: Clear to Auscultation, Good Air Exchange. No: Respiratory Distress, Accessory Muscle Use Cardiovascular: Present: Regular Rate and Rhythm, Normal S1, S2. No: Murmurs Abdomen: No: Tenderness, Distention, Peritoneal Signs Back: Present: Normal Inspection Upper Extremity: Present: Normal Inspection. No: Cyanosis, Edema Lower Extremity: Present: Normal Inspection. No: Edema Neurological: Present: GCS=15, CN II-XII Intact, Speech Normal Skin: Present: Warm, Dry, Normal Color. No: Rashes Psychiatric: Present: Alert, Oriented x 3, Normal Insight, Normal Concentration <Migel Mazariegos - Last Filed: 08/06/18 20:58> Vital Signs Temp Pulse Resp BP Pulse Ox 08/06/18 20:00 98.4 F 63 16 133/86 100 <Jorge Winchester - Last Filed: 08/06/18 21:24> Medical Decision Making ED Course and Treatment: 08/06/18 19:44 23-year-old female with a past medical history of headache, also presenting a flu like symptoms. Plan: CBC, CMP Flu, 1 L normal saline bolus Benadryl Reglan Toradol 08/06/18 20:57 CBC/CMP within normal limits, rapid flu negative, Patient most likely suffering from viral URI Will discharge patient home with appropriate follow-up <Migel Mazariegos - Last Filed: 08/06/18 20:58> - Lab Interpretations Lab Results: Total Bilirubin 0.2 mg/dL (0.2-1.3) 08/06/18 20:20 AST 29 U/L (14-36) 08/06/18 20:20 ALT 35 U/L (7-56) 08/06/18 20:20 Alkaline Phosphatase 81 U/L (38-126) 08/06/18 20:20 Total Protein 8.4 g/dL (5.8-8.3) H 08/06/18 20:20 Albumin 4.3 g/dL (3.0-4.8) 08/06/18 20:20 Globulin 4.1 gm/dL 08/06/18 20:20 Albumin/Globulin Ratio 1.0 (1.1-1.8) L 08/06/18 20:20 - Medication Orders Current Medication Orders: Discontinued Medications Diphenhydramine HCl (Benadryl) 25 mg IVP STAT STA Stop: 08/06/18 19:41 Last Admin: 08/06/18 20:27 Dose: 25 mg IVP Administration Document 08/06/18 20:27 CNR (Rec: 08/06/18 20:27 CNR [id number]) Charges for Administration # of IVP Administrations 1 Sodium Chloride (Sodium Chloride 0.9%) 1,000 mls @ 999 mls/hr IV .Q1H1M STA Stop: 08/06/18 20:40 Last Admin: 08/06/18 20:27 Dose: 999 mls/hr eMAR Start Stop Document 08/06/18 20:27 CNR (Rec: 08/06/18 20:27 CNR [id number]) Intravenous Solution Start Date 08/06/18 Start Time 20:27 End Date 08/06/18 End time 21:27 Total Infusion Time 60 Ketorolac Tromethamine (Toradol) 15 mg IVP STAT STA Stop: 08/06/18 19:41 Last Admin: 08/06/18 20:27 Dose: 15 mg MAR Pain Assessment Document 08/06/18 20:27 CNR (Rec: 08/06/18 20:27 CNR [id number]) Pain Reassessment Is this a pain reassessment? No IVP Administration Document 08/06/18 20:27 CNR (Rec: 08/06/18 20:27 CNR [id number]) Charges for Administration # of IVP Administrations 1 Metoclopramide HCl (Reglan) 10 mg IVP STAT STA Stop: 08/06/18 19:41 Last Admin: 08/06/18 20:27 Dose: 10 mg IVP Administration Document 08/06/18 20:27 CNR (Rec: 08/06/18 20:27 CNR [id number]) Charges for Administration # of IVP Administrations 1 <Jorge Winchester - Last Filed: 08/06/18 21:24> Disposition/Present on Arrival - Present on Arrival Any Indicators Present on Arrival: No History of DVT/PE: No History of Uncontrolled Diabetes: No Urinary Catheter: No History of Decub. Ulcer: No History Surgical Site Infection Following: None - Disposition Have Diagnosis and Disposition been Completed?: Yes Disposition Time: 21:00 Patient Plan: Discharge <Migel Mazariegos - Last Filed: 08/06/18 20:58> <Jorge Winchester - Last Filed: 08/06/18 21:24> - Disposition Diagnosis: Viral URI, Migraine Disposition: HOME/ ROUTINE Patient Problems: Current Active Problems Problem Status Onset Migraine Acute Viral URI Acute Condition: GOOD Discharge Instructions (ExitCare): Migraine Headache (DC), Viral Upper Respiratory Infection, Adult (DC) Additional Instructions: Please follow up with your primary care provider within one day MARIS ARGUELLO, thank you for letting us take care of you today. Your provider was Jorge Winchester DO and Migel Mazariegos DO and you were treated for headache, nausea / migraine/ viral URI. The emergency medical care you received today was directed at your acute symptoms. If you were prescribed any medication, please fill it and take as directed. It may take several days for your symptoms to resolve. Return to the Emergency Department if your symptoms worsen, do not improve, or if you have any other problems. Please contact your doctor or call one of the physicians/clinics you have been referred to that are listed on the Patient Visit Information form that is included in your discharge packet. Bring any paperwork you were given at discharge with you along with any medications you are taking to your follow up visit. Our treatment cannot replace ongoing medical care by a primary care provider outside of the emergency department. Thank you for allowing the [facility] team to be part of your care today. If you had an X-Ray or CT scan: A Radiologist will review the ED reading if any change in treatment is needed we will contact you. If you had a blood, urine, or wound culture: It will take several days for the results, if any change in treatment is needed we will contact you. If you had an STI test: It will take 48 hours for the results. Please call after 1 week if you have not heard back. Referrals: PCP,NO [Primary Care Provider] - Follow up with primary Forms: [employer] (Slovak), WORK NOTE
[2018-08-06] MEDS ORDERED: DiphenhydrAMINE 50 mg/ml Inj IVP STA (19:40)
[2018-08-06] MEDS ORDERED: Sodium Chloride 0.9% 1,000 ML IV STA (19:40)
[2018-08-06 20:24] VITALS: O2SAT 100
[2018-08-06 20:42] LABS: ALBUMIN 4.3 g/dL (3.0-4.8); ALT/SGPT 35 U/L (7-56); AST/SGOT 29 U/L (14-36); BLOOD UREA NITROGEN 11 mg/dL (7-21); CALCIUM 9.1 mg/dL (8.4-10.5); GFR NON-AFRICAN AMERICAN > 60
[2018-08-06 20:45] LABS: BASO # 0.02 K/mm3 (0.0-2.0); BASO % 0.4 % (0.0-3.0); EOS # 0.1 (0.0-0.7); EOS % 2.3 % (1.5-5.0); HEMOGLOBIN 10.2 g/dL (12.0-16.0); LYMPH # 2.3 (1.2-3.4); LYMPH % 44.2 % (22.0-35.0); MEAN CELL VOLUME 69.6 fl (80.0-105.0); MEAN CORPUSCULAR HEMOGLOBIN 21.7 pg (25.0-35.0); MEAN CORPUSCULAR HGB CONC 31.2 g/dl (31.0-37.0); MEAN PLATELET VOLUME 9.6 fl (7.0-11.0); MONO # 0.3 (0.1-0.6); MONO % 6.4 % (1.0-6.0); RBC 4.7 10^6/uL (3.5-6.1); WHITE BLOOD COUNT 5.2 10^3/uL (4.5-11.0)
[2018-08-06 21:35] VITALS: BP 112/68; PULSE 68; RESP 17; TEMP 98.5
== END 2018-08-06 21:30 | disposition home or self-care (01) ==
LOC: ED 19:01
DX: J06.9 Acute upper respiratory infection, unspecified (principal); G43.909 Migraine, unspecified, not intractable, without status migrainosus
CPT/HCPCS: 80053; 81025; 85025; 87804; 96361; 96374; 96375; 99284; J1200; J1885; J2765; J7030